=== PATIENT | female | born 1940 | race Caucasian/White ===

== ENCOUNTER 2016-09-12 13:54 | Emergency (ER) | payer BC ==
[~2016-09-12] VITALS: Ht 162.6 cm; Wt 52.2 kg
[2016-09-12] MEDS ORDERED: BACITRACIN TOP OINT 1 UD PKG TOP ONE ×2 (15:19→16:00)
[2016-09-12] MEDS ORDERED: ACETAMINOPHEN 325 MG TAB PO ONE ×2 (15:21→16:00)
[2016-09-12] MEDS ORDERED: SODIUM CHLORIDE 0.9% 1,000 ML IVB ONE (15:32)
[2016-09-12 16:17] LABS: Basophils # (auto) 0 uL; Basophils % (auto) 0.2 % (0.0-2.0); Eosinophils # (auto) 0 uL; Hematocrit 43.5 % (36.0-46.0); Hemoglobin 15.1 g/dL (12.2-16.2); Lymphocytes # (auto) 0.3 uL; Mean Corpuscular Hemoglobin 32.3 pg (28.0-32.0); Mean Corpuscular Hgb Conc. 34.6 g/dL (32.0-36.0); Mean Corpuscular Volume 93.1 fL (80.0-100.0); Mean Platelet Volume 8.6 fL (7.4-10.4); Monocytes # (auto) 0.6 uL; Monocytes % (auto) 14.5 % (0.0-12.0); Neutrophils # (auto) 3.4 uL; Neutrophils % (auto) 78.3 % (37.0-80.0); Platelet Count (auto) 116 10^3/uL (140-450); Red Cell Distribution Width 14.8 % (11.6-16.0); White Blood Cell 4.4 10^3/uL (4.4-10.8)
[2016-09-12 16:31] LABS: INR 1.03 (0.9-1.15); Partial Thromboplastin Time 30.3 sec (22.64-33.71); Prothrombin Time 11.2 sec (9.37-12.3)
[2016-09-12 16:40] LABS: Albumin 3.7 g/dL (3.4-5.0); BUN/Creatinine Ratio 14.7; Bilirubin, Total 0.7 mg/dL (0.2-1.0); Calcium 8.5 mg/dL (8.5-10.1); Potassium 3.8 mmol/L (3.5-5.1); Total Protein 6.9 g/dL (6.4-8.2)
[2016-09-12] MEDS ORDERED: TETANUS-DIPTH-ACEL PERTUSSIS 0.5ML SYRG IM ONE (17:00)
[2016-09-12 17:05] VITALS: BP 143/59
== END 2016-09-12 17:11 | disposition home or self-care (01) ==
LOC: ER 13:59
DX: S01.01XA Laceration without foreign body of scalp, initial encounter (principal); S00.03XA Contusion of scalp, initial encounter; W19.XXXA Unspecified fall, initial encounter; Y93.89 Activity, other specified; Y99.8 Other external cause status; Y92.89 Other specified places as the place of occurrence of the external cause
CPT/HCPCS: 12002; 36415; 70450; 80053; 85025; 85610; 85730; 90471; 90715; 96360; 99285; J7030

== ENCOUNTER 2016-09-14 08:51 | Emergency (ER) | payer BC, MEDICARE ==
[~2016-09-14] VITALS: Ht 162.6 cm; Wt 52.2 kg
[2016-09-14 09:31] VITALS: BP 121/54
== END 2016-09-14 10:07 | disposition home or self-care (01) ==
LOC: ER 08:51
DX: S01.01XD Laceration without foreign body of scalp, subsequent encounter (principal)